=== PATIENT | male | born 1960 | race Caucasian/White ===

== ENCOUNTER 2023-12-25 18:53 | Emergency (ER) | payer BC, SELFPAY ==
[2023-12-25 19:00] VITALS: BP 157/119; BP 180/120; PULSE 101; PULSE 118; RESP 18; TEMP 37.1; O2SAT 96; O2SAT 98; BMI 30.1
[2023-12-25 19:39] LABS: MANUAL DIFF FLAG NO
[2023-12-25 19:40] LABS: Basophils Absolute Auto 0.1 X10*3/uL (0.0-0.2); Basophils Percent Auto 0.7 % (0-2); Eosinophils Absolute Auto 0.6 X10*3/uL (0.0-0.4); Eosinophils Percent Auto 7.2 % (0-4); Hematocrit 45.5 % (42.0-52.0); Imm Gran Abs Auto 0.01 X10*3/uL (0.00-0.03); Imm Gran Pct Auto 0.1 % (0.0-0.4); Lymphocytes Percent Auto 24.5 % (20-40); Mean Corpuscular HGB Conc 35.2 g/dl (31.0-36.0); Mean Corpuscular Hemoglobin 29.8 pg (27.0-33.0); Mean Corpuscular Volume 84.7 fL (80.0-98.0); Mean Platelet Volume 8.4 fL (9.4-12.4); Monocytes Absolute Auto 0.7 X10*3/uL (0.1-1.2); Monocytes Percent Auto 8.7 % (2-11); Neutrophils Absolute Auto 4.7 x10*3/uL (2.0-8.3); Neutrophils Percent Auto 58.8 % (45-73); Platelet Count 262 X10*3/uL (160-400); Red Blood Count 5.37 X10*6/uL (4.60-5.80)
[2023-12-25 19:58] LABS: Alanine Aminotransferase 24 U/L (0-40); Albumin Level 4.2 g/dL (3.5-5.0); Alkaline Phosphatase 87 U/L (39-117); Anion Gap 13 (12-20); Aspartate Amino Transferase 22 U/L (5-37); Bilirubin Total 0.4 mg/dL (0.0-1.0); Blood Urea Nitrogen 7 mg/dL (9-16); Calcium 9.6 mg/dL (8.4-10.2); Carbon Dioxide 28 mmol/L (22-29); Chloride 99 mmol/L (96-108); Creatinine Clr Calc Pharmacy 86.3; Estimated Glomerular Filt Rate > 60; Ethanol 74 mg/dL; Glucose Random 98 mg/dL (60-115); Potassium 3.7 mmol/L (3.3-5.1); Sodium 136 mmol/L (135-145); Total Protein 7.4 g/dL (6.5-8.0)
[2023-12-25 20:19] LABS: Amphetamine Screen Urine Not Detected (Not Detect); Barbiturates, Urine Not Detected (Not Detect); Benzodiazepines Screen Urine Not Detected (Not Detect); Buprenorphine Scr Not Detected (Not Detect); Cannabinoid Screen Urine Not Detected (Not Detect); Cocaine Screen Urine Not Detected (Not Detect); Fentanyl, urine Not Detected (Not Detect); Methadone Screen, Urine Not Detected (Not Detect); Opiate Screen Urine Not Detected (Not Detect); Oxycodone Screen Urine Not Detected (Not Detect); Phencyclidine Screen Urine Not Detected (Not Detect)
--- NOTE | 2023-12-25 20:38 | PC.NURSE ---
pt biba from home, a&ox4, respirations even and unlabored. pt reporting onset of thoughts of SI with out plan due to anxiety. pt reports he had taken ativan and started to feel better. on arrival, pt denies thoughts of SI/HI and reports he would feel safe going home. pt reports he has a pcp appt. on wednesday to follow up with medication adjustment. pt changed by security, belongings placed in c54. 1:1 sitter.
[2023-12-25 22:00] VITALS: BP 170/110; PULSE 108; RESP 20; TEMP 36.9; O2SAT 98
--- NOTE | 2023-12-25 22:16 | ED_ITS ---
HPI - General Adult General Chief complaint: Psychiatric Symptoms Stated complaint: SI Time Seen by Provider: 12/25/23 22:16 History of Present Illness ED Provider: Josiah ANDRES narrative: The patient is a 63-year-old male with a history of anxiety and depression. He says that he was on venlafaxine for a long time and did well from a psychiatric point of view but a couple of months ago he and his primary care doctor decided to wean him off the venlafaxine because of hypertension. The weaning of the venlafaxine about a month ago. Since stopping the venlafaxine he has felt much less happy and well. He has been in touch with his PCP and recently restarted his venlafaxine about a week ago. He has not yet started to feel significantly better. Today he was feeling quite bad and told his that he was thinking that he just shouldn't be here any more. This seemed to be a suicidal statement so his called 911. Just before leaving with paramedics the patient took a clonazepam. He is feeling considerably better. He did not have any definite plan to kill himself nor did he do anything to harm himself to this point. At this point he denies any sense of suicidality. Related Data Allergies Allergy/AdvReac Type Severity Reaction Status Date / Time No Known Allergies Allergy Verified 12/25/23 19:07 Review of Systems 2 Review of Systems: Yes all other systems are reviewed and are negative [facility] Social History Social History Use of substances other than those prescribed or required for medical reasons: No Advance Directives: No Advance Directives Information Provided: No Do you have a plan to hurt others: No Plan Physical Exam ED Vital Signs: Vital Signs - 24 hr 12/25/23 19:00 12/25/23 22:00 12/25/23 23:12 Temperature 98.8 F 98.4 F 98.4 F Pulse Rate 101 H 108 H 108 H Respiratory Rate 18 20 20 Blood Pressure 157/119 H 170/110 H 170/110 H Pulse Oximetry 98 98 98 Oxygen Delivery Method Room Air Room Air Room Air BMI result Body Mass Index 30.1 Const Other: The patient is awake and alert and does not seem in any distress. He is quite talkative. HENMT Other: Face symmetrical. Mucous membranes moist. Eyes General: appearance normal, both eyes and all related structures Pupils: Equal, round and reactive pupils present EOM: EOMs intact bilaterally Neck Neck: Yes full ROM Resp Effort & Inspection: normal respiratory effort Auscultation: clear to auscultation bilaterally Cardio Rate: regular rate Rhythm: regular rhythm Heart sounds: S1 normal heart sound present and S2 normal heart sound present GI Other: Abdomen soft nontender Skin Other: skin is dry and unremarkable Neuro Other: the patient is awake, alert, oriented, and has a normal mental status. Cranial nerves are grossly intact. He moves his extremities normally and appropriately. He has a steady gait. He is neurologically intact. Cranial nerves: Yes Equal, round and reactive pupils present Extrem Other: No peripheral edema. General: Yes full ROM Psych Other: Patient is quite talkative. He makes good eye contact. He seems suture oriented. He denies suicidality. Medical Decision Making Medical Decision Making [facility] Narrative: The patient is a 63-year-old male with chronic problems related to depression and anxiety. He has been on venlafaxine prescribed by his PCP. His venlafaxine was stopped a couple of months ago because of high blood pressure problems. He did not like how he felt off the venlafaxine and he has recently restarted it. He admits to having had a couple of life stressors in the past few days that made him feel worse today but he says that at no point did he intent to express any true suicidal intent. He has no plans to harm self. His called 911 because of his statements. my overall impression is that the patient is not expressing any sent meds which would suggest that he is high risk for suicide. There are no firearms in the home. He has no history of any significant attempt at self-harm. He adamantly denies any plans to harm himself at the moment. The patient seems to have capacity to make decisions. I do not find any grounds to hold him involuntarily. He is feeling better and would like to go home. He plans on having a relaxing Wednesday tomorrow and watching football. He has a PCP appointment the next day on Wednesday. I think discharge is reasonable. Lab Data 12/25/23 19:38 12/25/23 19:38 Labs: Lab Results 12/25/23 12/25/23 Range/Units 19:38 19:59 WBC 8.0 (4.8-10.8) X10*3/uL RBC 5.37 (4.60-5.80) X10*6/uL Hgb 16.0 (14.0-18.0) g/dl Hct 45.5 (42.0-52.0) % MCV 84.7 (80.0-98.0) fL MCH 29.8 (27.0-33.0) pg MCHC 35.2 (31.0-36.0) g/dl RDW 12.0 (11.0-16.0) % Plt Count 262 (160-400) X10*3/uL MPV 8.4 L (9.4-12.4) fL Immature Gran % (Auto) 0.1 (0.0-0.4) % Neut % (Auto) 58.8 (45-73) % Lymph % (Auto) 24.5 (20-40) % [place] % (Auto) 8.7 (2-11) % Eos % (Auto) 7.2 H (0-4) % Baso % (Auto) 0.7 (0-2) % Lymph # (Auto) 2.0 (1.2-4.9) X10*3/uL [place] # (Auto) 0.7 (0.1-1.2) X10*3/uL Eos # (Auto) 0.6 H (0.0-0.4) X10*3/uL Baso # (Auto) 0.1 (0.0-0.2) X10*3/uL Abs Immat Gran (auto) 0.01 (0.00-0.03) X10*3/uL Absolute Neuts (auto) 4.7 (2.0-8.3) x10*3/uL Absolute Nucleated RBC 0.000 (0.0-0.012) X10*3/uL Nucleated RBC % (auto) 0.0 (0.0-0.2) /100WBC Sodium 136 (135-145) mmol/L Potassium 3.7 (3.3-5.1) mmol/L Chloride 99 (96-108) mmol/L Carbon Dioxide 28 (22-29) mmol/L Anion Gap 13 (12-20) BUN 7 L (9-16) mg/dL Creatinine 1.04 (0.5-1.4) mg/dL Estim Creat Clear Calc 86.3 Estimated GFR > 60 Random Glucose 98 (60-115) mg/dL Calcium 9.6 (8.4-10.2) mg/dL Total Bilirubin 0.4 (0.0-1.0) mg/dL AST 22 (5-37) U/L ALT 24 (0-40) U/L Alkaline Phosphatase 87 (39-117) U/L Total Protein 7.4 (6.5-8.0) g/dL Albumin 4.2 (3.5-5.0) g/dL Urine Opiates Screen Not Detected (Not Detect) Ur Buprenorphine Scrn Not Detected (Not Detect) ng/mL Ur Oxycodone Screen Not Detected (Not Detect) ng/mL Urine Methadone Screen Not Detected (Not Detect) ng/mL Urine Fentanyl Screen Not Detected (Not Detect) Ur Barbiturates Screen Not Detected (Not Detect) Ur Phencyclidine Scrn Not Detected (Not Detect) Ur Amphetamines Screen Not Detected (Not Detect) U Benzodiazepines Scrn Not Detected (Not Detect) Urine Cocaine Screen Not Detected (Not Detect) U Marijuana (THC) Screen Not Detected (Not Detect) Ethyl Alcohol 74 mg/dL Discharge Plan Discharge Clinical Impression: Anxiety and depression Patient Disposition: Home, Self-Care Additional Instructions: Please continue your regular medications. Please do your best to try to relax and take it easy tomorrow. Appointment with your regular doctor on Wednesday. If you feel like you need to speak to somebody confidentially call the National Crisis Line at 988. Feel significantly worse. Referrals: Shane La DO [Primary Care Provider] - (Anxiety and depression) Interventions: [place]-Suicide Risk Severity Scale Last Done: 12/25/23 23:10 ED Discharge Assessment Last Done: 12/25/23 23:12 Discharge Date/Time: 12/25/23 23:13 Print Language: [place]
[2023-12-25 23:12] VITALS: BP 170/110; PULSE 108; RESP 20; TEMP 36.9; O2SAT 98
--- NOTE | 2023-12-25 23:12 | PC.NURSE ---
PT DENIES SI/HI, DR ALLISON AWARE. PLAN FOR D/C WITH AND SON
== END 2023-12-25 23:13 | disposition home or self-care (01) ==
PROVIDERS: Emergency Provider Emergency Medicine; PCP Family Medicine
DX: F41.9 Anxiety disorder, unspecified (principal); F32.A Depression, unspecified; R45.851 Suicidal ideations; Z79.899 Other long term (current) drug therapy
CPT/HCPCS: 36415; 80053; 80307; 85025; 99283; 99285